=== PATIENT | female | born 1950 | race Caucasian/White ===

== ENCOUNTER → 2017-01-06 | Day surgery (SDC) | payer OTHER | END | disposition home or self-care (01) | LOC: SDCH 09:35 | DX: Z12.11 Encounter for screening for malignant neoplasm of colon (principal); K57.30 Diverticulosis of large intestine without perforation or abscess without bleeding; K64.8 Other hemorrhoids; I10 Essential (primary) hypertension; K21.9 Gastro-esophageal reflux disease without esophagitis; M06.9 Rheumatoid arthritis, unspecified; M79.7 Fibromyalgia; Z88.5 Allergy status to narcotic agent; Z79.899 Other long term (current) drug therapy; Z90.89 Acquired absence of other organs; Z98.41 Cataract extraction status, right eye; Z98.42 Cataract extraction status, left eye; Z98.51 Tubal ligation status; Z98.890 Other specified postprocedural states | CPT/HCPCS: J2704 ==